=== PATIENT | female | born 1955 | race Caucasian/White ===

== ENCOUNTER 2017-03-14 13:39 | Observation (INO) | payer OTHER ==
[~2017-03-14 13:39] MED LIST: CALCTAB37 OR; FISH1000 PO; GABA300C3 PO; GLIM2TAB PO; GLUCTAB OR; LANTUSP SQ; MSIR15 OR; NOVORP2 SQ; RED600TA PO
[2017-03-14 13:42] VITALS: BP 156/77; PULSE 100; RESP 24; TEMP 97.4; O2SAT 96
--- NOTE | 2017-03-14 13:50 | PD ---
Physical Exam Date Seen by Provider: Mar 14, 2017 Time Seen by Provider: 13:49 Data Data Last Documented VS Vital Signs Date Time Temp Pulse Resp B/P Pulse Ox O2 Delivery O2 Flow Rate FiO2 03/14/17 13:42 97.4 100 24 156/77 96 Room Air [facility] Supervised Visit with DELL: No Narrative Course 61 YO F with complaint of dysuria x 1 week, high blood sugars today. Antibiotics last week for dental pain. Vitals reviewed. Awaiting bed placement. Elsa Alexandra Mar 14, 2017 13:50
[2017-03-14] MEDS ORDERED: SODIUM CHLOR 0.9% 1000 ML INJ 1,000 ML IV SCH (14:06)
[2017-03-14] MEDS ORDERED: SODIUM CHLOR 0.9% 1000 ML INJ 1,000 ML IV ONE ×2 (14:15→15:30)
[2017-03-14] MEDS ORDERED: SODIUM CHLORIDE 0.9% FLUSH 10 ML FLUSH IV FLUSH PRN ×2 (14:15→18:15)
[2017-03-14 14:36] LABS: AUTOMATED NEUTROPHIL # 8.9 TH/MM3 (1.8-7.7); BASOPHIL # 0.2 TH/MM3 (0-0.2); BASOPHIL % 1.3 % (0.0-2.0); EOSINOPHIL # 0.1 TH/MM3 (0-0.4); HEMATOCRIT 43.7 % (35.0-46.0); HEMO FLAGS DIFF FINAL; LYMPH % 19.8 % (9.0-44.0); LYMPHOCYTE # 2.4 TH/MM3 (1.0-4.8); MEAN CORPUSCULAR HEMOGLOBIN 31.9 PG (27.0-34.0); MEAN CORPUSCULAR HGB CONC 33.3 % (32.0-36.0); NEUT % 72.9 % (16.0-70.0); PLATELET COUNT 246 TH/MM3 (150-450); RED BLOOD COUNT 4.55 MIL/MM3 (4.00-5.30); RED CELL DISTRIBUTION WIDTH 13.2 % (11.6-17.2); WHITE BLOOD COUNT 12.2 TH/MM3 (4.0-11.0)
--- NOTE | 2017-03-14 14:36 | PD ---
HPI Chief Complaint: Complaint Time Seen by Provider: 14:06 Travel History International Travel<30 days: No Contact w/Intl Traveler<30days: No Traveled to known affect area: No History of Present Illness HPI Patient is a 61-year-old female who presents to emergency room with complaints of possible uti. Patient reports that for the past week, she has had increased urinary urgency, frequency and dysuria. Reports that she thinks that she has a urinary tract infection. She reports that on top of that, she is a type I diabetic, reports her blood sugars have been elevated, but sugar was 497 prior to breakfast this morning. Reports that she has also been dealing with tooth infection, reports that she went to a free dental clinic and was told that she had a dental infection and was started on penicillin. That she completed her full course of antibiotics and began to have pain again to her tooth. Reports that she returned to dental clinic was told that the infection was still there and that she would need to see in another dental specialist. Patient reports that she is currently looking for another dentist at this time. Patient with no fevers or chills at the time, no abdominal pain, no nausea or vomiting. PFSH Past Medical History Heart Rhythm Problems: No Cancer: Yes (SQUAMOUS CELL HAND) Cardiac Catheterization: No Cardiovascular Problems: Yes (OPEN HEART/NC) High Cholesterol: Yes Congestive Heart Failure: No Diabetes: Yes Diminished Hearing: No GERD: Yes Hepatitis: No Hiatal Hernia: No Hypertension: No Respiratory: Yes (COPD) Myocardial Infarction: No Thyroid Disease: No Tetanus Vaccination: Unknown Influenza Vaccination: No Menopausal: Yes Ovarian Cysts: No (OVARIAN SURG THOUGH) Past Surgical History Abdominal Surgery: No Cardiac Surgery: No Coronary Artery Bypass Graft: No Ear Surgery: No Endocrine Surgery: No Eye Surgery: No Genitourinary Surgery: Yes (BLADDER SUSPENSION) Gynecologic Surgery: Yes (VEE OVARIAN WEDGE CUT ; D&C (MULTIPLE) 3RD DEGREE TEAR FROM CHILDBIRTH) Hysterectomy: Yes Pacemaker: No Thoracic Surgery: No Social History Alcohol Use: No Tobacco Use: No Substance Use: No Allergies-Medications (Allergen,Severity, Reaction): Uncoded Allergies: ARTIFICIAL SWEETNERS (Allergy, Severe, 08/29/10) GENERALIZED HEAVINESS Reported Meds & Prescriptions Reported Meds & Active Scripts Active Reported Red Yeast Rice (Red Yeast Rice Extract) 600 Mg Tab 600 Mg PO DAILY Fish Oil 1,000 Mg Cap 1,000 Mg PO DAILY Morphine Sulfate IR 15 mg (Morphine Sulfate) 15 Mg Tab 15 Mg OR BIDPRN Glimepiride 2 Mg Tab 2 Mg PO DAILY Metformin Hcl (Metformin HCl) 500 Mg Tab 500 Mg OR BID Gabapentin 300 Mg Cap 300 Mg PO TID Calcium 600 High Potency (Calcium Carbonate) Tab 600 Mg OR BID Novolin R (Insulin Human Regular) 100 Units/Ml Inj 0 SQ DIRECTED Sliding Scale As Directed. Lantus (Insulin Glargine) 100 Units/Ml Inj 70 Units SQ HS Review of Systems General / Constitutional: No: Fever Eyes: No: Visual changes HENT: No: Headaches Cardiovascular: No: Chest Pain or Discomfort Respiratory: No: Shortness of Breath Gastrointestinal: No: Abdominal Pain Genitourinary: Positive: Urgency, Frequency, Dysuria Musculoskeletal: No: Pain Skin: No Rash Neurologic: No: Weakness Psychiatric: No: Depression Endocrine: No: Polydipsia Hematologic/Lymphatic: No: Easy Bruising Physical Exam Narrative GENERAL: No acute distress, nontoxic SKIN: Focused skin assessment warm/dry. HEAD: Atraumatic. Normocephalic. EYES: Pupils equal and round. No scleral icterus. No injection or drainage. ENT: No nasal bleeding or discharge. Mucous membranes pink and moist. NECK: Trachea midline. No JVD. CARDIOVASCULAR: Regular rate and rhythm. No murmur appreciated. RESPIRATORY: No accessory muscle use. Clear to auscultation. Breath sounds equal bilaterally. GASTROINTESTINAL: Abdomen soft, non-tender, nondistended. Hepatic and splenic margins not palpable. MUSCULOSKELETAL: No obvious deformities. No clubbing. No cyanosis. No edema. NEUROLOGICAL: Awake and alert. No obvious cranial nerve deficits. Motor grossly within normal limits. Normal speech. PSYCHIATRIC: Appropriate mood and affect; insight and judgment normal. Data Data Last Documented VS Vital Signs Date Time Temp Pulse Resp B/P Pulse Ox O2 Delivery O2 Flow Rate FiO2 03/14/17 14:29 18 03/14/17 13:42 97.4 100 156/77 96 Room Air Orders Complete Blood Count With Diff (03/14/17 14:06) Comprehensive Metabolic Panel (03/14/17 14:06) Prothrombin Time / Inr (Pt) (03/14/17 14:06) Act Partial Throm Time (Ptt) (03/14/17 14:06) Urinalysis - C+S If Indicated (03/14/17 14:06) Iv Access Insert/Monitor (03/14/17 14:06) Sodium Chlor 0.9% 1000 Ml Inj (Ns 1000 M (03/14/17 14:06) Sodium Chloride 0.9% Flush (Ns Flush) (03/14/17 14:15) Sodium Chlor 0.9% 1000 Ml Inj (Ns 1000 M (03/14/17 14:15) Urine Culture (03/14/17 14:25) Sodium Chlor 0.9% 1000 Ml Inj (Ns 1000 M (03/14/17 15:30) Insulin Human Regular Inj (Novolin R Inj (03/14/17 15:30) Ceftriaxone Inj (Rocephin Inj) (03/14/17 15:45) Insulin Human Regular Inj (Novolin R Inj (03/14/17 17:00) Fluconazole (Diflucan) (03/14/17 17:15) Labs Laboratory Tests Test 03/14/17 14:25 White Blood Count 12.2 TH/MM3 Red Blood Count 4.55 MIL/MM3 Hemoglobin 14.5 GM/DL Hematocrit 43.7 % Mean Corpuscular Volume 96.0 FL Mean Corpuscular Hemoglobin 31.9 PG Mean Corpuscular Hemoglobin 33.3 % Concent Red Cell Distribution Width 13.2 % Platelet Count 246 TH/MM3 Mean Platelet Volume 9.5 FL Neutrophils (%) (Auto) 72.9 % Lymphocytes (%) (Auto) 19.8 % Monocytes (%) (Auto) 5.0 % Eosinophils (%) (Auto) 1.0 % Basophils (%) (Auto) 1.3 % Neutrophils # (Auto) 8.9 TH/MM3 Lymphocytes # (Auto) 2.4 TH/MM3 Monocytes # (Auto) 0.6 TH/MM3 Eosinophils # (Auto) 0.1 TH/MM3 Basophils # (Auto) 0.2 TH/MM3 CBC Comment DIFF FINAL Differential Comment Prothrombin Time 10.0 SEC Prothromb Time International 0.9 RATIO Ratio Activated Partial 25.0 SEC Thromboplast Time Urine Color LIGHT-YELLOW Urine Turbidity HAZY Urine pH 5.0 Urine Specific [place] 1.024 Urine Protein NEG mg/dL Urine Glucose (UA) 1000 mg/dL Urine Ketones NEG mg/dL Urine Occult Blood NEG Urine Nitrite NEG Urine Bilirubin NEG Urine Urobilinogen LESS THAN 2.0 MG/DL Urine Leukocyte Esterase LARGE Urine RBC 5 /hpf Urine WBC 93 /hpf Urine WBC Clumps RARE Urine Squamous Epithelial <1 /hpf Cells Urine Bacteria RARE /hpf Urine Mucus FEW /lpf Microscopic Urinalysis Comment CULTURE INDICATED Sodium Level 129 MEQ/L Potassium Level 4.6 MEQ/L Chloride Level 95 MEQ/L Carbon Dioxide Level 23.7 MEQ/L Anion Gap 10 MEQ/L Blood Urea Nitrogen 9 MG/DL Creatinine 1.00 MG/DL Estimat Glomerular Filtration 56 ML/MIN Rate Random Glucose 678 MG/DL Calcium Level 8.9 MG/DL Total Bilirubin 0.3 MG/DL Aspartate Amino Transf 25 U/L (AST/SGOT) Alanine Aminotransferase 31 U/L (ALT/SGPT) Alkaline Phosphatase 171 U/L Total Protein 7.2 GM/DL Albumin 2.9 GM/DL [facility] Medical Decision Making Medical Screen Exam Complete: Yes Emergency Medical Condition: Yes Interpretation(s) Vital Signs Date Time Temp Pulse Resp B/P Pulse Ox O2 Delivery O2 Flow Rate FiO2 03/14/17 14:29 18 03/14/17 13:42 97.4 100 24 156/77 96 Room Air Differential Diagnosis Dental infection, hyperglycemia, cystitis, pyelonephritis Narrative Course 61-year-old female who presents to emergency room with complaints of dysuria, urinary urgency and frequency for the past week. UA ordered. Patient also with hyperglyecemia - bs too high to read. Will give IVF and check labs and administer insulin after labs result Vital Signs Date Time Temp Pulse Resp B/P Pulse Ox O2 Delivery O2 Flow Rate FiO2 03/14/17 14:29 18 03/14/17 13:42 97.4 100 24 156/77 96 Room Air Laboratory Tests Test 03/14/17 14:25 White Blood Count 12.2 TH/MM3 (4.0-11.0) Red Blood Count 4.55 MIL/MM3 (4.00-5.30) Hemoglobin 14.5 GM/DL (11.6-15.3) Hematocrit 43.7 % (35.0-46.0) Mean Corpuscular Volume 96.0 FL (80.0-100.0) Mean Corpuscular Hemoglobin 31.9 PG (27.0-34.0) Mean Corpuscular Hemoglobin 33.3 % Concent (32.0-36.0) Red Cell Distribution Width 13.2 % (11.6-17.2) Platelet Count 246 TH/MM3 (150-450) Mean Platelet Volume 9.5 FL (7.0-11.0) Neutrophils (%) (Auto) 72.9 % (16.0-70.0) Lymphocytes (%) (Auto) 19.8 % (9.0-44.0) Monocytes (%) (Auto) 5.0 % (0.0-8.0) Eosinophils (%) (Auto) 1.0 % (0.0-4.0) Basophils (%) (Auto) 1.3 % (0.0-2.0) Neutrophils # (Auto) 8.9 TH/MM3 (1.8-7.7) Lymphocytes # (Auto) 2.4 TH/MM3 (1.0-4.8) Monocytes # (Auto) 0.6 TH/MM3 (0-0.9) Eosinophils # (Auto) 0.1 TH/MM3 (0-0.4) Basophils # (Auto) 0.2 TH/MM3 (0-0.2) CBC Comment DIFF FINAL Differential Comment Prothrombin Time 10.0 SEC (9.8-11.6) Prothromb Time International 0.9 RATIO Ratio Activated Partial 25.0 SEC Thromboplast Time (24.3-30.1) Urine Color LIGHT-YELLOW (YELLW/STRAW) Urine Turbidity HAZY (CLEAR) Urine pH 5.0 (5.0-8.5) Urine Specific [place] 1.024 (1.002-1.035) Urine Protein NEG mg/dL (NEG-TRACE) Urine Glucose (UA) 1000 mg/dL (NEG) Urine Ketones NEG mg/dL (NEG) Urine Occult Blood NEG (NEG) Urine Nitrite NEG (NEG) Urine Bilirubin NEG (NEG) Urine Urobilinogen LESS THAN 2.0 MG/DL (LESS THAN 2.0) Urine Leukocyte Esterase LARGE (NEG) Urine RBC 5 /hpf (0-3) Urine WBC 93 /hpf (0-5) Urine WBC Clumps RARE (NONE) Urine Squamous Epithelial <1 /hpf (0-5) Cells Urine Bacteria RARE /hpf (NONE) Urine Mucus FEW /lpf (OCC) Microscopic Urinalysis Comment CULTURE INDICATED Sodium Level 129 MEQ/L (136-145) Potassium Level 4.6 MEQ/L (3.5-5.1) Chloride Level 95 MEQ/L (98-107) Carbon Dioxide Level 23.7 MEQ/L (21.0-32.0) Anion Gap 10 MEQ/L (5-15) Blood Urea Nitrogen 9 MG/DL (7-18) Creatinine 1.00 MG/DL (0.50-1.00) Estimat Glomerular Filtration 56 ML/MIN (>89) Rate Random Glucose 678 MG/DL (74-106) Calcium Level 8.9 MG/DL (8.5-10.1) Total Bilirubin 0.3 MG/DL (0.2-1.0) Aspartate Amino Transf 25 U/L (15-37) (AST/SGOT) Alanine Aminotransferase 31 U/L (10-53) (ALT/SGPT) Alkaline Phosphatase 171 U/L (45-117) Total Protein 7.2 GM/DL (6.4-8.2) Albumin 2.9 GM/DL (3.4-5.0) patients bs 678, after 3 liters of fluid and 10 units of insulin - patient's repeat bs 527 Patient reports that for the past 2 years, her blood sugars have been uncontrolled. Patient reports that her blood sugar ranges from the 400- 600s. Patient reports that she is a type II diabetic, reports that she cannot find a physician to take care of her bc she does not have any insurance. She has been buying insulin from the pharmacy and has been administrating this to herself for her blood sugar control and reports "i just can't get my bs down." She does have a urinary tract infection, a dose of rocephin was administered. sent Plan to admit for bs control case reviewed with dr. beverly who accepts pt to service on behalf of Dr. Gage Diagnosis Primary Impression: Hyperglycemia due to type 2 diabetes mellitus Qualified Code: E11.65 - Type 2 diabetes mellitus with hyperglycemia, with long-term current use of insulin Additional Impression: UTI (urinary tract infection) Qualified Code: N30.01 - Acute cystitis with hematuria Admitting Information Admitting Physician Requests: Lakia Raines DO Mar 14, 2017 14:36
[2017-03-14 14:46] LABS: BACTERIA, URINE RARE /hpf; BLOOD, URINE NEG (NEG); COMMENT (UR) CULTURE INDICATED; CULTURE IF INDICATED CULTURE INDICATED; GLUCOSE,URINE 1000 mg/dL (NEG); KETONE, URINE NEG (NEG); MUCUS URINE FEW /lpf (OCC); NITRITE,URINE NEG (NEG); SQUAMOUS EPITHELIAL CELL URINE <1 /hpf (0-5); URINE COLOR LIGHT-YELLOW (YELLW/STRAW)
[2017-03-14 14:50] LABS: INTERNATIONAL NORMALIZED RATIO 0.9 RATIO
[2017-03-14 14:53] LABS: ANION GAP 10 MEQ/L (5-15)
[2017-03-14 15:13] LABS: ALKALINE PHOSPHATASE 171 U/L (45-117); ALT (GPT) 31 U/L (10-53); AST (GOT) 25 U/L (15-37); BICARBONATE 23.7 MEQ/L (21.0-32.0); BLOOD UREA NITROGEN 9 MG/DL (7-18); CHLORIDE 95 MEQ/L (98-107); GLOMERULAR FILTRATION RATE 56 ML/MIN (>89); POTASSIUM 4.6 MEQ/L (3.5-5.1); SODIUM (NA) 129 MEQ/L (136-145); TOTAL BILIRUBIN ADULT 0.3 MG/DL (0.2-1.0)
[2017-03-14] MEDS ORDERED: INSULIN HUMAN REGULAR 1,000 UNITS/10 ML VIAL SQ ONE ×2 (15:30→17:00)
[2017-03-14] MEDS ORDERED: cefTRIAXone INJ 1,000 MG in SODIUM CHLORIDE 0.9% INJ 100 ML IV ONE (15:45)
[2017-03-14] MEDS ORDERED: FLUCONAZOLE 100 MG TAB PO ONE ×2 (17:15→18:15)
--- NOTE | 2017-03-14 17:54 | HHI.HP ---
HPI Service Family Medicine Primary Care Physician Non-Staff Admission Diagnosis Hyperglycemia, uti Diagnoses: International Travel<30 Days: No Contact w/Intl Traveler<30days: No Known Affected Area: No History of Present Illness Patient is presenting with multiple complaints and a difficult historian. 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 She is presenting with multiple complaints to the hospital today. Her main complaint is that she believes she's developed the bladder infection. She reports that for the last 5 days she's noticed some burning with urination, as well as a slight increase in urination. Prior to this she has had a yeast infection that she's been trying to treat [id number]. She denies any fevers but she has been feeling warm and clammy. She also have had worsening fatigue. The burning with urination became painful yesterday (03/13/17), and then today when she woke up to urinate became almost unbearable. She also noticed some mild pain in her back, this concerned her that the infection had reached her kidneys so she decided to come to the hospital. She missed to feeling slightly nauseated, but has not vomited. She also admits to some occasional diarrhea throughout this timeframe. Denies any abdominal pain, but says that her bladder feels slightly tender. Another complaint is a toothache. 3 weeks ago she started to have some pain in her left side molar. She had gotten a root canal done to that tooth several years ago, and only recently has started to hurt. 2 weeks ago she went to a free clinic and was started on penicillin which she completed as of Thursday (). Also as of yesterday she went and saw a dentist at another free clinic who took x-rays of her mouth and told her that the nerve of that tooth appeared to be infected. They informed her that they don't work on the molars and give her referral to a specialist even though she told him that she couldn't afford to go see a specialist. The tooth pain is still bothersome but not as painful as it was prior to the antibiotics. Her last and most important issue for this Hospital visit is her type 2 diabetes. She has been poorly controlled for quite some time. She has been without insurance and then having difficulty obtaining her insulin. Her blood sugars used to be in the 200s on average however of late they've been in the 400s, and in the ED she was found to have a blood sugar of 678. She uses Lantus and Novolin R for her insulin. She says that she's been using the same bottle of Lantus for the last 2 years and ran out of it night prior to last. She says she's noticed that she's had the drastically increase her Novolin R sliding scale over the last several months in order to bring her blood glucose down. She thinks that her poor glucose control is been because of the stress, infections, and inability get her medications. She says that the reason she's been having difficulty obtaining her medications is due to lack of insurance. Review of Systems Constitutional: COMPLAINS OF: Fatigue, Fever, DENIES: Weight gain, Weight loss , Chills, Dizziness Eyes: DENIES: Blurred vision, Double Vision Ears, nose, mouth, throat: DENIES: Throat pain, Hoarseness, Sinus Pain Respiratory: COMPLAINS OF: Cough, Shortness of breath, DENIES: Wheezing, Sputum production Cardiovascular: DENIES: Chest pain, Palpitations, Lower Extremity Edema, Orthopnea Gastrointestinal: COMPLAINS OF: Diarrhea, Nausea, DENIES: Abdominal pain, Vomiting Genitourinary: COMPLAINS OF: Dyspareunia, Urinary frequency, Urinary incontinence, Dysuria, DENIES: Hematuria, Nocturia Musculoskeletal: COMPLAINS OF: Joint pain, Back pain Integumentary: DENIES: Rash Immunologic/allergic: DENIES: Eczema Neurologic: COMPLAINS OF: Poor Balance, DENIES: Abnormal gait, Headache Psychiatric: COMPLAINS OF: Anxiety, DENIES: Confusion, Depression Past Family Social History Past Medical History Bladder Prolapse Type 2 diabetes Carpal tunnel ADD Fibromyalgia Arthritis neuropathy herniated disks Plantar fasciitis CVA in Left eye Heart murmur Bronchitis GERD COPD DE Past Surgical History Hysterectomy Open Heart Surgery bypass 1 Cervical spinal fusion Reported Medications She says she's been without all of her medications, and has only been getting the Lantus and Novolin R from [facility] when she can afford it Reported Meds & Active Scripts Active Reported Red Yeast Rice (Red Yeast Rice Extract) 600 Mg Tab 600 Mg PO DAILY Fish Oil 1,000 Mg Cap 1,000 Mg PO DAILY Morphine Sulfate IR 15 mg (Morphine Sulfate) 15 Mg Tab 15 Mg OR BIDPRN Glimepiride 2 Mg Tab 2 Mg PO DAILY Glucophage XR 24 HR (Metformin HCl) 500 Mg Tab 500 Mg OR BID Gabapentin 300 Mg Cap 300 Mg PO TID Calcium 600 High Potency (Calcium Carbonate) Tab 600 Mg OR BID Novolin R (Insulin Human Regular) 100 Units/Ml Inj 0 SQ DIRECTED Sliding Scale As Directed. 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 SKIN: No rashes, ecchymoses or lesions. Cool and dry. HEAD: Atraumatic. Normocephalic. No temporal or scalp tenderness. EYES: Pupils equal round and reactive. Extraocular motions intact. No scleral icterus. No injection or drainage. ENT: Nose without bleeding, purulent drainage or septal hematoma. Throat without erythema, tonsillar hypertrophy or exudate several dental cavities. No noticeable erythema or abscesses in the oral region. Tender to palpation of the molar. Uvula midline. Airway patent. NECK: Trachea midline. No JVD or lymphadenopathy. Supple, nontender, no meningeal signs. CARDIOVASCULAR: Regular rate and rhythm soft mitral murmur likely mitral regurg noted RESPIRATORY: Clear to auscultation. Breath sounds equal bilaterally. No wheezes , rales, or rhonchi. GASTROINTESTINAL: Abdomen soft, , nondistended. No hepato-splenomegaly, or palpable masses. No guarding. Tenderness to palpation at the bladder MUSCULOSKELETAL: Extremities without clubbing, cyanosis, or edema. No joint tenderness, effusion, or edema noted. No calf tenderness. Negative Homans sign bilaterally. Negative CVA tenderness NEUROLOGICAL: Awake and alert. Cranial nerves II through XII grossly intact. Motor and sensory grossly within normal limits. Normal speech. Laboratory Laboratory Tests Test 03/14/17 14:25 White Blood Count 12.2 Red Blood Count 4.55 Hemoglobin 14.5 Hematocrit 43.7 Mean Corpuscular Volume 96.0 Mean Corpuscular Hemoglobin 31.9 Mean Corpuscular Hemoglobin 33.3 Concent Red Cell Distribution Width 13.2 Platelet Count 246 Mean Platelet Volume 9.5 Neutrophils (%) (Auto) 72.9 Lymphocytes (%) (Auto) 19.8 Monocytes (%) (Auto) 5.0 Eosinophils (%) (Auto) 1.0 Basophils (%) (Auto) 1.3 Neutrophils # (Auto) 8.9 Lymphocytes # (Auto) 2.4 Monocytes # (Auto) 0.6 Eosinophils # (Auto) 0.1 Basophils # (Auto) 0.2 CBC Comment DIFF FINAL Differential Comment Prothrombin Time 10.0 Prothromb Time International 0.9 Ratio Activated Partial 25.0 Thromboplast Time Urine Color LIGHT-YELLOW Urine Turbidity HAZY Urine pH 5.0 Urine Specific [place] 1.024 Urine Protein NEG Urine Glucose (UA) 1000 Urine Ketones NEG Urine Occult Blood NEG Urine Nitrite NEG Urine Bilirubin NEG Urine Urobilinogen LESS THAN 2.0 Urine Leukocyte Esterase LARGE Urine RBC 5 Urine WBC 93 Urine WBC Clumps RARE Urine Squamous Epithelial <1 Cells Urine Bacteria RARE Urine Mucus FEW Microscopic Urinalysis Comment CULTURE INDICATED Sodium Level 129 Potassium Level 4.6 Chloride Level 95 Carbon Dioxide Level 23.7 Anion Gap 10 Blood Urea Nitrogen 9 Creatinine 1.00 Estimat Glomerular Filtration 56 Rate Random Glucose 678 Calcium Level 8.9 Total Bilirubin 0.3 Aspartate Amino Transf 25 (AST/SGOT) Alanine Aminotransferase 31 (ALT/SGPT) Alkaline Phosphatase 171 Total Protein 7.2 Albumin 2.9 Date/Time Procedure Status Source Growth 03/14/17 14:25 Urine Culture Received Urine Random Urine Pending Result Diagram: 03/14/17 1425 03/14/17 1425 Assessment and Plan Assessment and Plan This is a 61-year-old female with extensive past history significant for type 2 diabetes, DE, 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 Being admitted for urinary tract infection, and hyperglycemia. Code Status Full code Discussed Condition With Dr. Gage Problem List: (1) Hyperglycemia due to type 2 diabetes mellitus Status: Acute Plan: Upon arriving to the ED patient was found to have a blood glucose of 678. Status post 10 units followed by 6 units of Novolin R, and blood glucose was 493. Patient says she hasn't eaten since breakfast. Poorly managed diabetes and due to lack of obtaining her insulin. Anion gap is closed at 10, patient does not smell of ketones, she is awake alert and not appearing to be ill at this time. Currently do not feel patient is in DKA but are closely monitoring. * Admit to observation * Blood glucose per protocol * Levemir 10 units at bedtime * Novolin insulin sliding scale * IV fluids at NS 100 MLS per hour * Holding off on insulin drip, will monitor for DKA * Consulted case management to help with patient obtaining follow-up and medications * Consulted diabetic education * Repeat BMP for 2100 * CBC, BMP ordered for a.m. (2) UTI (urinary tract infection) Status: Acute Plan: Patient is having signs and symptoms of urinary tract infection. UA is negative for nitrites, positive white blood cell counts, positive for bacteria, positive for mucus, positive for large amounts of glucose, cultures are indicated. * Rocephin 1 g IV every 24 hours * Urine cultures pending * Blood cultures pending * IV fluids as above (3) Tooth pain Status: Acute Plan: Patient reported having a tooth infection treated with penicillin, and completed her antibiotic regimen. Currently no signs other than tenderness for infection at this time, i.e. no erythema or swelling of the tooth in question. * Antibiotics as above * Monitor at this time * Pain control with Tylenol and Motrin (4) Yeast infection Status: Acute Plan: Patient reports that she's had a yeast infection from last week to 2 weeks been trying to treat it with [id number] medications. * Fluconazole 150 mg once (5) Nutrition, metabolism, and development symptoms Status: Acute Plan: Diet: Diabetic diet Fluids: IV fluids NS at 100mls/hr Out of bed ad dominique. Vitals every 4 Monitor electrolytes replace accordingly DVT prophylaxis with heparin and SCDs CODE STATUS: Full code Of note patient is Yazidi and declines blood products Disposition: Pending hyperglycemia control Problem Qualifiers (1) Hyperglycemia due to type 2 diabetes mellitus: Qualified Code: E11.65 - Type 2 diabetes mellitus with hyperglycemia, with long -term current use of insulin (2) UTI (urinary tract infection): Qualified Code: N30.01 - Acute cystitis with hematuria Delvin Naik MD R2 Mar 14, 2017 17:54
[2017-03-14 18:00] VITALS: BP 141/75; PULSE 90; RESP 18; O2SAT 98
[2017-03-14] MEDS: HEPARIN SODIUM - SQ 10,000 UNITS/ML VIAL SQ SCH (18:00)
[2017-03-14] MEDS ORDERED: ONDANSETRON HCL 4 MG/2 ML VIAL IVP PRN (18:15)
[2017-03-14] MEDS ORDERED: MAGNESIUM HYDROXIDE SUSP 30 ML CUP PO PRN (18:15)
[2017-03-14] MEDS ORDERED: ACETAMINOPHEN 325 MG TAB PO PRN (18:15)
[2017-03-14] MEDS ORDERED: GLUCAGON 1 MG/ML VIAL OTHER PRN (18:15)
[2017-03-14] MEDS ORDERED: LACTULOSE SYRUP 20 GM/30 ML CUP PO PRN (18:15)
[2017-03-14] MEDS ORDERED: DEXTROSE 50% IN WATER 50 ML VIAL(D50) IV PRN (18:15)
[2017-03-14] MEDS ORDERED: BISACODYL 10 MG SUPP RECTAL PRN (18:15)
[2017-03-14] MEDS ORDERED: SENNOSIDES 8.6 MG TAB PO PRN (18:15)
[2017-03-14] MEDS ORDERED: NALOXONE HCL 0.4 MG/ML AMP IV PRN (18:15)
[2017-03-14 18:21] VITALS: O2SAT 93
[2017-03-14] MEDS ORDERED: PILL SPLITTER OTHER PRN (18:30)
[2017-03-14 19:16] VITALS: BP 135/65; PULSE 86; RESP 18; TEMP 98.1; O2SAT 98
[2017-03-14] MEDS: SODIUM CHLOR 0.9% 1000 ML INJ 1,000 ML IV SCH (19:17)
[2017-03-14] MEDS ORDERED: IBUPROFEN 600 MG TAB PO PRN (19:30)
[2017-03-14] MEDS: INSULIN DETEMIR 100 UNITS/ML VIAL SQ SCH (20:59)
[2017-03-14] MEDS: INSULIN NovoLIN REGULAR SUPPLEMENTAL SCALE SQ SCH (21:00)
[2017-03-14] MEDS: SODIUM CHLORIDE 0.9% FLUSH 10 ML FLUSH IV FLUSH SCH (21:00)
[2017-03-14] MEDS: DOCUSATE SODIUM 50 MG/SENNA 8.6 MG TAB PO SCH (21:00)
[2017-03-14] MEDS ORDERED: ASPI325T PO (21:49)
[2017-03-14] MEDS ORDERED: CYMB60CA PO (21:49)
[2017-03-14] MEDS ORDERED: NRDRIP SQ (21:49)
[2017-03-14] MEDS ORDERED: LANTUS2P SQ (21:49)
[2017-03-14] MEDS ORDERED: METO25TA3 PO (21:49)
[2017-03-14] MEDS ORDERED: OMEP40CA2 PO (21:49)
[2017-03-14] MEDS ORDERED: GABA300C5 PO (21:49)
[2017-03-14 21:59] LABS: BICARBONATE 27.7 MEQ/L (21.0-32.0)
[2017-03-14 22:17] VITALS: BP 172/79; RESP 16; TEMP 98.2; O2SAT 97
[2017-03-14] MEDS ORDERED: HYDR-3533 PO (22:43)
[2017-03-14 23:31] VITALS: BP 131/58; PULSE 79; RESP 19; TEMP 98.4; O2SAT 97
[2017-03-15] VITALS (7 sets, daily range): BP systolic 106–147; BP diastolic 55–68; PULSE 71–78; RESP 18–20; TEMP 97.8–98.7; O2SAT 93–96
[2017-03-15] MEDS: HEPARIN SODIUM - SQ 10,000 UNITS/ML VIAL SQ SCH ×3 (03:17→17:28)
[2017-03-15] MEDS: SODIUM CHLOR 0.9% 1000 ML INJ 1,000 ML IV SCH ×2 (03:22→13:39)
[2017-03-15 05:52] LABS: BICARBONATE 27.7 MEQ/L (21.0-32.0)
[2017-03-15 06:07] LABS: AUTOMATED NEUTROPHIL # 4.2 TH/MM3 (1.8-7.7); BASOPHIL # 0.1 TH/MM3 (0-0.2); BASOPHIL % 0.7 % (0.0-2.0); EOSINOPHIL # 0.2 TH/MM3 (0-0.4); EOSINOPHIL % 1.9 % (0.0-4.0); HEMO FLAGS DIFF FINAL; LYMPH % 42.2 % (9.0-44.0); LYMPHOCYTE # 3.6 TH/MM3 (1.0-4.8); MEAN CELL VOLUME 93.9 FL (80.0-100.0); MEAN CORPUSCULAR HEMOGLOBIN 31.8 PG (27.0-34.0); MEAN CORPUSCULAR HGB CONC 33.9 % (32.0-36.0); MONO % 6.2 % (0.0-8.0); PLATELET COUNT 193 TH/MM3 (150-450); RED BLOOD COUNT 4.05 MIL/MM3 (4.00-5.30); RED CELL DISTRIBUTION WIDTH 13.1 % (11.6-17.2); WHITE BLOOD COUNT 8.5 TH/MM3 (4.0-11.0)
[2017-03-15] MEDS: INSULIN NovoLIN REGULAR SUPPLEMENTAL SCALE SQ SCH ×4 (06:53→22:20)
[2017-03-15] MEDS: SODIUM CHLORIDE 0.9% FLUSH 10 ML FLUSH IV FLUSH SCH ×2 (08:38→21:00)
[2017-03-15] MEDS: GABAPENTIN 300 MG CAP PO SCH ×3 (08:38→17:28)
[2017-03-15] MEDS: DOCUSATE SODIUM 50 MG/SENNA 8.6 MG TAB PO SCH ×2 (08:39→21:00)
[2017-03-15] MEDS ORDERED: MISCELLANEOUS NURSING INFORMATION ONE (10:00)
[2017-03-15] MEDS ORDERED: PNEUMOCOCCAL POLYVALENT INJ 25 MCG/0.5 ML SYR IM ONE (10:00)
[2017-03-15 10:06] LABS: HEMOGLOBIN A1a 1.8 %; HEMOGLOBIN A1b 1.3 %; HEMOGLOBIN Ao 71.8 %; HEMOGLOBIN F 2.2 %; HEMOGLOBIN LA1C 3.5 %; HEMOGLOBIN P3 5.5 %
[2017-03-15] MEDS: metFORMIN HCL 500 MG TAB PO SCH (10:49)
[2017-03-15] MEDS: LISINOPRIL 5 MG TAB PO SCH (10:49)
--- NOTE | 2017-03-15 11:41 | HHI.FPPN ---
Subjective Remarks This is a 61-year-old female seen with the medicine team. This patient has known type 2 diabetes, history of TX, history of stroke, history of C-spine fusions, fibromyalgia. She has had CABG 1. She presents to the emergency department with urinary burning and frequency, associated with fatigue and back pain. She's had nausea but no vomiting and loose stools. Additional problem is a toothache on penicillin. She did see a dentist this past week and was given a referral for specialty work on her molar. Third problem is her diabetes for which she has been on Lantus (this bottle is 2 years old) and Novolin R sliding scale. Her sugars at home have gone from 200 400 and when she presented to the emergency department her glucoses were 678. She attributes her poor glucose control to stress, infection and her medications. Please see history and physical examination for this admission for additional past, family, social history and review of systems. This morning, she says her suprapubic pain is much improved, she has just a mild amount of burning with urination. She's been up to the bathroom several times. Overall she feels she is improved. Objective Vitals Vital Signs Date Time Temp Pulse Resp B/P Pulse Ox O2 Delivery O2 Flow Rate FiO2 03/15/17 08:33 97.8 74 18 147/68 93 03/15/17 07:56 96 21 03/15/17 03:13 98.0 71 18 106/55 95 03/15/17 00:04 93 21 03/14/17 23:31 98.4 79 19 131/58 97 03/14/17 22:17 98.2 16 172/79 97 03/14/17 19:16 98.1 86 18 135/65 98 Room Air 03/14/17 18:21 93 21 03/14/17 18:00 90 18 141/75 98 Room Air 03/14/17 14:29 18 03/14/17 13:42 97.4 100 24 156/77 96 Room Air Result Diagram: 03/15/17 0455 03/15/17 0455 Other Results Laboratory Tests Test 03/14/17 03/14/17 03/15/17 14:25 21:08 04:55 Prothrombin Time 10.0 SEC Prothromb Time International 0.9 RATIO Ratio Activated Partial 25.0 SEC Thromboplast Time Sodium Level 129 MEQ/L 137 MEQ/L 138 MEQ/L Potassium Level 4.6 MEQ/L 4.0 MEQ/L 4.0 MEQ/L Chloride Level 95 MEQ/L 101 MEQ/L 105 MEQ/L Carbon Dioxide Level 23.7 MEQ/L 27.7 MEQ/L 27.7 MEQ/L Anion Gap 10 MEQ/L 8 MEQ/L 5 MEQ/L Blood Urea Nitrogen 9 MG/DL 6 MG/DL 9 MG/DL Creatinine 1.00 MG/DL 0.66 MG/DL 0.53 MG/DL Estimat Glomerular Filtration 56 ML/MIN 91 ML/MIN 117 ML/MIN Rate Random Glucose 678 MG/DL 364 MG/DL 314 MG/DL Calcium Level 8.9 MG/DL 8.1 MG/DL 8.2 MG/DL Total Bilirubin 0.3 MG/DL Aspartate Amino Transf 25 U/L (AST/SGOT) Alanine Aminotransferase 31 U/L (ALT/SGPT) Alkaline Phosphatase 171 U/L Total Protein 7.2 GM/DL Albumin 2.9 GM/DL White Blood Count 12.2 TH/MM3 8.5 TH/MM3 Red Blood Count 4.55 MIL/MM3 4.05 MIL/MM3 Hemoglobin 14.5 GM/DL 12.9 GM/DL Hematocrit 43.7 % 38.0 % Mean Corpuscular Volume 96.0 FL 93.9 FL Mean Corpuscular Hemoglobin 31.9 PG 31.8 PG Mean Corpuscular Hemoglobin 33.3 % 33.9 % Concent Red Cell Distribution Width 13.2 % 13.1 % Platelet Count 246 TH/MM3 193 TH/MM3 Mean Platelet Volume 9.5 FL 9.3 FL Neutrophils (%) (Auto) 72.9 % 49.0 % Lymphocytes (%) (Auto) 19.8 % 42.2 % Monocytes (%) (Auto) 5.0 % 6.2 % Eosinophils (%) (Auto) 1.0 % 1.9 % Basophils (%) (Auto) 1.3 % 0.7 % Neutrophils # (Auto) 8.9 TH/MM3 4.2 TH/MM3 Lymphocytes # (Auto) 2.4 TH/MM3 3.6 TH/MM3 Monocytes # (Auto) 0.6 TH/MM3 0.5 TH/MM3 Eosinophils # (Auto) 0.1 TH/MM3 0.2 TH/MM3 Basophils # (Auto) 0.2 TH/MM3 0.1 TH/MM3 CBC Comment DIFF FINAL DIFF FINAL Differential Comment Urine Color LIGHT-YELLOW Urine Turbidity HAZY Urine pH 5.0 Urine Specific [place] 1.024 Urine Protein NEG mg/dL Urine Glucose (UA) 1000 mg/dL Urine Ketones NEG mg/dL Urine Occult Blood NEG Urine Nitrite NEG Urine Bilirubin NEG Urine Urobilinogen LESS THAN 2.0 MG/DL Urine Leukocyte Esterase LARGE Urine RBC 5 /hpf Urine WBC 93 /hpf Urine WBC Clumps RARE Urine Squamous Epithelial <1 /hpf Cells Urine Bacteria RARE /hpf Urine Mucus FEW /lpf Microscopic Urinalysis Comment CULTURE INDICATED Hemoglobin A1c 13.9 % Microbiology Date/Time Procedure Status Source Growth 03/14/17 19:55 Aerobic Blood Culture - Preliminary Resulted Blood Peripheral NO GROWTH IN 1 DAY 03/14/17 19:55 Anaerobic Blood Culture - Preliminary Resulted Blood Peripheral NO GROWTH IN 1 DAY 03/14/17 14:25 Urine Culture - Preliminary Resulted Urine Random Urine Gram Negative [place] Objective Remarks O. CONSTITUTIONAL/GEN: normally nourished, in NAD. Obese EYES: conjunctiva normal, PERRLA, EOMI. ENT: Mouth and pharynx normal. NECK: thyroid midline. LUNGS: clear A-P, respiratory effort is normal. CARDIOVASCULAR: RR without murmur or gallop. No significant edema. SCDs in place GI/ABD: soft without masses, without organomegaly. Active bowel sounds, no suprapubic tenderness : no CVA tenderness NEURO: No focal deficits. SKIN: color normal, no rashes noted. HEME/LYMPH: no bruising, petechia or significant adenopathy MUSC: back is normal in appearance. Extremities are normal in appearance. PSYCH/MENTAL STATUS: Alert and oriented x 3. 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 Being admitted for urinary tract infection, and hyperglycemia. Problem List: (1) Hyperglycemia due to type 2 diabetes mellitus Status: Chronic Plan: Upon arriving to the ED patient was found to have a blood glucose of 678. Status post 10 units followed by 6 units of Novolin R, and blood glucose was 493. Patient says she hasn't eaten since breakfast. Poorly managed diabetes and due to lack of obtaining her insulin. Anion gap is closed at 10, patient does not smell of ketones, she is awake alert and not appearing to be ill at this time. Currently do not feel patient is in DKA but are closely monitoring. * Admit to observation * Blood glucose per protocol * Levemir 10 units at bedtime * Novolin insulin sliding scale * IV fluids at NS 100 MLS per hour * Holding off on insulin drip, will monitor for DKA * Consulted case management to help with patient obtaining follow-up and medications * Consulted diabetic education * CBC, BMP ordered for a.m. * Will start metformin 500 mg today in the middle of her meal * Start lisinopril today. (2) UTI (urinary tract infection) Status: Acute Plan: Patient is having signs and symptoms of urinary tract infection. UA is negative for nitrites, positive white blood cell counts, positive for bacteria, positive for mucus, positive for large amounts of glucose, cultures are indicated. * Rocephin 1 g IV every 24 hours * Urine cultures pending * Blood cultures pending * IV fluids as above (3) Tooth pain Status: Acute Plan: Patient reported having a tooth infection treated with penicillin, and completed her antibiotic regimen. Currently no signs other than tenderness for infection at this time, i.e. no erythema or swelling of the tooth in question. * Antibiotics as above * Monitor at this time * Pain control with Tylenol and Motrin (4) Yeast infection Status: Acute Plan: Patient reports that she's had a yeast infection from last week to 2 weeks been trying to treat it with [id number] medications. * Fluconazole 150 mg once (5) Nutrition, metabolism, and development symptoms Status: Acute Plan: Diet: Diabetic diet Fluids: IV fluids NS at 100mls/hr Out of bed ad dominique. Vitals every 4 Monitor electrolytes replace accordingly DVT prophylaxis with heparin and SCDs CODE STATUS: Full code Of note patient is Yarsani and declines blood products Disposition: Pending hyperglycemia control Problem Qualifiers (1) Hyperglycemia due to type 2 diabetes mellitus: Qualified Code: E11.65 - Type 2 diabetes mellitus with hyperglycemia, with long -term current use of insulin (2) UTI (urinary tract infection): Qualified Code: N30.01 - Acute cystitis with hematuria Nai Gage MD Mar 15, 2017 11:41
[2017-03-15] MEDS ORDERED: CYCL1TAB29 PO (13:54)
[2017-03-15] MEDS ORDERED: cefTRIAXone INJ 1,000 MG in SODIUM CHLORIDE 0.9% INJ 100 ML IV SCH (16:00)
[2017-03-15] MEDS ORDERED: CYCLOBENZAPRINE HCL 10 MG TAB PO PRN (16:45)
[2017-03-15] MEDS: INSULIN DETEMIR 100 UNITS/ML VIAL SQ SCH (22:26)
[2017-03-16 00:23] VITALS: BP 135/63; PULSE 74; RESP 18; TEMP 97.9; O2SAT 97
[2017-03-16] MEDS: DULoxetine HCl DR 60 MG CAP PO SCH ×2 (00:32→21:08)
[2017-03-16] MEDS: SODIUM CHLOR 0.9% 1000 ML INJ 1,000 ML IV SCH ×2 (00:32→09:06)
[2017-03-16] MEDS: PANTOPRAZOLE SOD 40 MG DELAYED RELEASE TAB PO SCH ×2 (00:32→21:08)
[2017-03-16] MEDS: HEPARIN SODIUM - SQ 10,000 UNITS/ML VIAL SQ SCH ×3 (01:35→18:14)
[2017-03-16 03:19] VITALS: BP 126/60; PULSE 73; RESP 18; O2SAT 95
[2017-03-16 05:56] LABS: HEMATOCRIT 38.1 % (35.0-46.0); MEAN CELL VOLUME 93.1 FL (80.0-100.0); MEAN CORPUSCULAR HEMOGLOBIN 32.4 PG (27.0-34.0); MEAN CORPUSCULAR HGB CONC 34.8 % (32.0-36.0); PLATELET COUNT 219 TH/MM3 (150-450); RED CELL DISTRIBUTION WIDTH 13.4 % (11.6-17.2); REVIEW FLAG FINAL
[2017-03-16] MEDS: INSULIN NovoLIN REGULAR SUPPLEMENTAL SCALE SQ SCH ×4 (06:17→21:18)
[2017-03-16 06:24] LABS: BICARBONATE 26.3 MEQ/L (21.0-32.0); POTASSIUM 4.1 MEQ/L (3.5-5.1)
[2017-03-16 08:31] VITALS: BP 161/68; PULSE 80; RESP 18; TEMP 98.8; O2SAT 95
[2017-03-16] MEDS: SODIUM CHLORIDE 0.9% FLUSH 10 ML FLUSH IV FLUSH SCH ×2 (09:00→21:09)
[2017-03-16] MEDS ORDERED: DULoxetine HCl DR 60 MG CAP PO SCH (09:00)
[2017-03-16] MEDS: GABAPENTIN 300 MG CAP PO SCH ×3 (09:04→17:56)
[2017-03-16] MEDS: metFORMIN HCL 500 MG TAB PO SCH ×2 (09:04→17:56)
[2017-03-16] MEDS: LISINOPRIL 5 MG TAB PO SCH (09:05)
[2017-03-16] MEDS: DOCUSATE SODIUM 50 MG/SENNA 8.6 MG TAB PO SCH ×2 (09:05→21:00)
[2017-03-16] MEDS: INSULIN DETEMIR 100 UNITS/ML VIAL SQ SCH ×2 (13:09→21:11)
[2017-03-16 14:22] VITALS: BP 128/58; PULSE 85; RESP 18; TEMP 98; O2SAT 98
--- NOTE | 2017-03-16 14:22 | HHI.FPPN ---
Subjective Remarks No acute events. Continues to have some dysuria this morning. Blood glucose still uncontrolled, titrating up insulin today. No nausea or vomiting. No diarrhea. No fevers or chills. (Soto Israel MD R2) Objective Vitals Vital Signs Date Time Temp Pulse Resp B/P Pulse Ox O2 Delivery O2 Flow Rate FiO2 03/16/17 08:31 98.8 80 18 161/68 95 03/16/17 03:19 73 18 126/60 95 03/16/17 00:23 97.9 74 18 135/63 97 03/15/17 19:19 98.7 78 18 116/57 95 03/15/17 15:38 98.2 75 20 141/64 96 I/O 03/15/17 03/15/17 03/15/17 03/16/17 03/16/17 03/16/17 07:00 15:00 23:00 07:00 15:00 23:00 Intake Total 1078 ml Balance 1078 ml Intake Oral 360 ml IV Total 718 ml # Voids 1 1 1 (Soto Israel MD R2) Result Diagram: 03/16/17 0508 03/16/17 0508 Objective Remarks O. CONSTITUTIONAL/GEN: No distress, sitting up in bed EYES: conjunctiva normal, PERRLA, EOMI. ENT: Mouth and pharynx normal. NECK: thyroid midline. LUNGS: CTAB CARDIOVASCULAR: RR without murmur or gallop. No significant edema. SCDs in place GI/ABD: soft without masses, without organomegaly. Active bowel sounds, no suprapubic tenderness : no CVA tenderness NEURO: No focal deficits. SKIN: color normal, no rashes noted. HEME/LYMPH: no bruising, petechiae or significant adenopathy MUSC: Extremities are normal in appearance. PSYCH/MENTAL STATUS: Alert and oriented x 3. 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 Being admitted for urinary tract infection, and hyperglycemia. Discharge Planning Pending better control of blood glucoses and diabetic education. (Soto Israel MD R2) Attending Attestation Patient seen and examined. Case reviewed and discussed with the resident team. Agree with plan of care as discussed with me and documented in the resident note. (Nai Gage MD) Problem List: (1) Hyperglycemia due to type 2 diabetes mellitus Status: Chronic Plan: Significant hyperglycemia despite 10 units Levemir at night and low dose sliding scale insulin. A1C extremely elevated. Also with UTI. * Blood glucose checks per protocol * Increase Levemir to 10 units BID * Increase metformin to 500 mg bid * Novolin insulin sliding scale * Consulted case management to help with patient obtaining follow-up and medications * Will need to follow up at free clinic if she qualifies * Consulted diabetic education * Lisinopril for renal protection (2) UTI (urinary tract infection) Status: Acute Plan: UA is negative for nitrites, positive white blood cell counts, positive for bacteria, positive for mucus, positive for large amounts of glucose, cultures are indicated. Urine culture with pseudomonas, trinh-sensitive. Blood cultures negative. * Rocephin 1 g IV every 24 hours x1 * Switched to Ciprofloxacin, 03/16/17 (3) Nutrition, metabolism, and development symptoms Status: Acute Plan: Diet: Diabetic diet Fluids: PO DVT prophylaxis with heparin and SCDs CODE STATUS: Full code Of note patient is Baptism and declines blood products Discussed with Dr. Gage, Dr. Munson (Soto Israel MD R2) Problem Qualifiers (1) Hyperglycemia due to type 2 diabetes mellitus: Qualified Code: E11.65 - Type 2 diabetes mellitus with hyperglycemia, with long -term current use of insulin (2) UTI (urinary tract infection): Qualified Code: N30.01 - Acute cystitis with hematuria Soto Israel MD R2 Mar 16, 2017 14:22 Nai Gage MD Mar 16, 2017 14:35
[2017-03-16 15:43] VITALS: BP 115/76; PULSE 85; RESP 18; TEMP 98.5; O2SAT 98
[2017-03-16 20:00] VITALS: BP 116/55; PULSE 81; RESP 18; TEMP 97.7; O2SAT 95
[2017-03-16] MEDS: CIPROFLOXACIN 500 MG TAB PO SCH (21:09)
[2017-03-17 00:12] VITALS: BP 127/60; PULSE 76; RESP 21; TEMP 98.3; O2SAT 94
[2017-03-17] MEDS: HEPARIN SODIUM - SQ 10,000 UNITS/ML VIAL SQ SCH ×2 (02:33→09:33)
[2017-03-17 04:32] VITALS: BP 105/55; PULSE 71; RESP 18; TEMP 96; O2SAT 97
[2017-03-17] MEDS: INSULIN NovoLIN REGULAR SUPPLEMENTAL SCALE SQ SCH ×2 (06:04→13:12)
[2017-03-17 07:30] VITALS: BP 139/63; PULSE 80; RESP 18; TEMP 98; O2SAT 96
[2017-03-17] MEDS: DOCUSATE SODIUM 50 MG/SENNA 8.6 MG TAB PO SCH ×2 (09:00→09:33)
[2017-03-17 09:05] LABS: HEMATOCRIT 40.8 % (35.0-46.0); MEAN CELL VOLUME 92.5 FL (80.0-100.0); MEAN CORPUSCULAR HEMOGLOBIN 32.3 PG (27.0-34.0); PLATELET COUNT 229 TH/MM3 (150-450); RED BLOOD COUNT 4.41 MIL/MM3 (4.00-5.30); RED CELL DISTRIBUTION WIDTH 13.3 % (11.6-17.2); REVIEW FLAG FINAL; WHITE BLOOD COUNT 7.7 TH/MM3 (4.0-11.0)
[2017-03-17] MEDS: INSULIN DETEMIR 100 UNITS/ML VIAL SQ SCH (09:32)
[2017-03-17] MEDS: metFORMIN HCL 500 MG TAB PO SCH (09:33)
[2017-03-17] MEDS: LISINOPRIL 5 MG TAB PO SCH (09:33)
[2017-03-17] MEDS: SODIUM CHLORIDE 0.9% FLUSH 10 ML FLUSH IV FLUSH SCH (09:33)
[2017-03-17] MEDS: CIPROFLOXACIN 500 MG TAB PO SCH (09:33)
[2017-03-17] MEDS: GABAPENTIN 300 MG CAP PO SCH ×2 (09:33→13:09)
--- NOTE | 2017-03-17 09:57 | HHI.DCPOC ---
Discharge Care Plan Diagnosis: (1) UTI (urinary tract infection) (2) Hyperglycemia due to type 2 diabetes mellitus Goals to Promote Your Health * To prevent worsening of your condition and complications * To maintain your health at the optimal level Directions to Meet Your Goals Take your medications as prescribed Follow your dietary instruction Follow activity as directed Keep your appointments as scheduled Take your immunizations and boosters as scheduled If your symptoms worsen call your PCP, if no PCP go to Urgent Care Center or Emergency Room Smoking is Dangerous to Your Health. Avoid second hand smoke Call the 24-hour hour crisis hotline for domestic abuse at Kulwinder Munson MD R1 Mar 17, 2017 09:57
[2017-03-17] MEDS ORDERED: EASY1MIS7 (10:22)
[2017-03-17] MEDS ORDERED: BLOOD GLUCOSE M1 KIT (10:22)
[2017-03-17] MEDS ORDERED: LEVEMIR SQ (10:22)
[2017-03-17] MEDS ORDERED: CIPR-9 PO (10:22)
[2017-03-17] MEDS ORDERED: METF500 PO (10:22)
--- NOTE | 2017-03-17 10:39 | HHI.FPPN ---
Subjective Remarks Patient seen and evaluated this morning. No acute events overnight with VSS. She states the she feels much better overall this morning and is ready to be discharged. Her dysuria resolved, but she does endorse a feeling of "bladder irritability." When asked to describe this feeling she is unable to and states that she is not in pain, but is more like being sore. Otherwise her only complaint is her chronic back pain from lying in her bed. She denied any fevers , chills, SOB, chest pain, NVD, or calf tenderness. (Kulwinder Munson MD R1) Objective Vitals Vital Signs Date Time Temp Pulse Resp B/P Pulse Ox O2 Delivery O2 Flow Rate FiO2 03/17/17 07:30 98.0 80 18 139/63 96 03/17/17 04:32 96.0 71 18 105/55 97 03/17/17 00:12 98.3 76 21 127/60 94 03/16/17 20:00 97.7 81 18 116/55 95 03/16/17 15:43 98.5 85 18 115/76 98 03/16/17 14:22 98.0 85 18 128/58 98 I/O 03/16/17 03/16/17 03/16/17 03/17/17 03/17/17 03/17/17 07:00 15:00 23:00 07:00 15:00 23:00 Intake Total 1078 ml 480 ml Balance 1078 ml 480 ml Intake Oral 360 ml 480 ml IV Total 718 ml # Voids 1 2 # Bowel Movements 1 (Kulwinder Munson MD R1) Result Diagram: 03/17/17 0810 03/16/17 0508 Objective Remarks CONSTITUTIONAL/GEN: No distress, sitting up in bed HEENT: AT, NC with EOMI. MMM. No JVD or LAD appreciated. LUNGS: CTAB with no CRW. CARDIOVASCULAR: RRR without murmur or gallop. GI/ABD: Soft, nontender with +BS. No masses appreciated. : No CVA tenderness. Mild suprapubic tenderness unchanged from earlier exams. NEURO: No focal deficits. SKIN: Warm and dry. No rash. MUSC: Extremities are normal in appearance. PSYCH/MENTAL STATUS: Alert and oriented x 3. 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 She is admitted for urinary tract infection, and hyperglycemia. Discharge Planning Patient to be discharged home today pending meeting with Case Management for assistance. (Kulwinder Munsno MD R1) Attending Attestation Patient seen and examined. Case reviewed and discussed with the resident team. Agree with plan of care as discussed with me and documented in the resident note. (Nai Gage MD) Problem List: (1) Hyperglycemia due to type 2 diabetes mellitus Status: Chronic Plan: Significant hyperglycemia despite 10 units Levemir at night and low dose sliding scale insulin. A1C extremely elevated. Also with UTI. * Blood glucose checks per protocol, home monitor ordered upon discharge * Increase Levemir to 15 units BID at discharge * Increase metformin to 1000 mg bid at discharge * Novolin insulin sliding scale discontinued on discahrge * Consulted case management to help with patient obtaining follow-up and medications * Will need to follow up at [facility] clinic per Case Management * Consulted diabetic education * Lisinopril for renal protection (2) UTI (urinary tract infection) Status: Acute Plan: UA is negative for nitrites, positive white blood cell counts, positive for bacteria, positive for mucus, positive for large amounts of glucose, cultures are indicated. Urine culture with pseudomonas, trinh-sensitive. Blood cultures negative. * Rocephin 1 g IV every 24 hours x1 * Switched to Ciprofloxacin, 03/16/17. Continue Ciprofloxacin at discharge for 4 more days (8 tablets) for a total of 7 days of ABX therapy. (3) Nutrition, metabolism, and development symptoms Status: Acute Plan: Diet: Diabetic diet Fluids: PO DVT prophylaxis with heparin and SCDs - discontinued on discharge CODE STATUS: Full code Of note patient is Anglican and declines blood products Discussed with Dr. Jhonatan Hernandez (Kulwinder Munson MD R1) Problem Qualifiers (1) Hyperglycemia due to type 2 diabetes mellitus: Qualified Code: E11.65 - Type 2 diabetes mellitus with hyperglycemia, with long -term current use of insulin (2) UTI (urinary tract infection): Qualified Code: N30.01 - Acute cystitis with hematuria Kulwinder Munson MD R1 Mar 17, 2017 10:39 Nai Gage MD Mar 17, 2017 15:51
[2017-03-17 11:28] VITALS: BP 124/63; PULSE 85; RESP 19; TEMP 98.1; O2SAT 95
[2017-03-17] MEDS ORDERED: DULOXETINE PO (13:55)
--- NOTE | 2017-03-23 16:10 | HHI.DS ---
Discharge Summary Admission Date Mar 14, 2017 at 17:30 Discharge Date: Mar 17, 2017 Admitting Diagnosis Hyperglycemia, uti (1) Hyperglycemia due to type 2 diabetes mellitus Diagnosis: Principal Plan: Significant hyperglycemia despite 10 units Levemir at night and low dose sliding scale insulin. A1C extremely elevated. Also with UTI. * Blood glucose checks per protocol, home monitor ordered upon discharge * Increase Levemir to 15 units BID at discharge * Increase metformin to 1000 mg bid at discharge * Novolin insulin sliding scale discontinued on discahrge * Consulted case management to help with patient obtaining follow-up and medications * Will need to follow up at [facility] clinic per Case Management * Consulted diabetic education * Lisinopril for renal protection (2) UTI (urinary tract infection) Diagnosis: Principal Plan: UA is negative for nitrites, positive white blood cell counts, positive for bacteria, positive for mucus, positive for large amounts of glucose, cultures are indicated. Urine culture with pseudomonas, trinh-sensitive. Blood cultures negative. * Rocephin 1 g IV every 24 hours x1 * Switched to Ciprofloxacin, 03/16/17. Continue Ciprofloxacin at discharge for 4 more days (8 tablets) for a total of 7 days of ABX therapy. (3) Nutrition, metabolism, and development symptoms Diagnosis: Principal Plan: Diet: Diabetic diet Fluids: PO DVT prophylaxis with heparin and SCDs - discontinued on discharge CODE STATUS: Full code Of note patient is [place] and declines blood products Discussed with Dr. Gage, Dr. Israel Brief History Patient is presenting with multiple complaints and a difficult historian. 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 She is presenting with multiple complaints to the hospital today. Her main complaint is that she believes she's developed the bladder infection. She reports that for the last 5 days she's noticed some burning with urination, as well as a slight increase in urination. Prior to this she has had a yeast infection that she's been trying to treat [id number]. She denies any fevers but she has been feeling warm and clammy. She also have had worsening fatigue. The burning with urination became painful yesterday (03/13/17), and then today when she woke up to urinate became almost unbearable. She also noticed some mild pain in her back, this concerned her that the infection had reached her kidneys so she decided to come to the hospital. She missed to feeling slightly nauseated, but has not vomited. She also admits to some occasional diarrhea throughout this timeframe. Denies any abdominal pain, but says that her bladder feels slightly tender. Another complaint is a toothache. 3 weeks ago she started to have some pain in her left side molar. She had gotten a root canal done to that tooth several years ago, and only recently has started to hurt. 2 weeks ago she went to a free clinic and was started on penicillin which she completed as of Thursday (). Also as of yesterday she went and saw a dentist at another free clinic who took x-rays of her mouth and told her that the nerve of that tooth appeared to be infected. They informed her that they don't work on the molars and give her referral to a specialist even though she told him that she couldn't afford to go see a specialist. The tooth pain is still bothersome but not as painful as it was prior to the antibiotics. Her last and most important issue for this Hospital visit is her type 2 diabetes. She has been poorly controlled for quite some time. She has been without insurance and then having difficulty obtaining her insulin. Her blood sugars used to be in the 200s on average however of late they've been in the 400s, and in the ED she was found to have a blood sugar of 678. She uses Lantus and Novolin R for her insulin. She says that she's been using the same bottle of Lantus for the last 2 years and ran out of it night prior to last. She says she's noticed that she's had the drastically increase her Novolin R sliding scale over the last several months in order to bring her blood glucose down. She thinks that her poor glucose control is been because of the stress, infections, and inability get her medications. She says that the reason she's been having difficulty obtaining her medications is due to lack of insurance. PE at Discharge CONSTITUTIONAL/GEN: No distress, sitting up in bed HEENT: AT, NC with EOMI. MMM. No JVD or LAD appreciated. LUNGS: CTAB with no CRW. CARDIOVASCULAR: RRR without murmur or gallop. GI/ABD: Soft, nontender with +BS. No masses appreciated. : No CVA tenderness. Mild suprapubic tenderness unchanged from earlier exams. NEURO: No focal deficits. SKIN: Warm and dry. No rash. MUSC: Extremities are normal in appearance. PSYCH/MENTAL STATUS: Alert and oriented x 3. Hospital Course Patient was admitted for hypoglycemia with urinary tract infection. Patient was placed on sliding scale insulin for diabetic control as well as Levemir long- acting insulin. Urine culture was positive for pansensitive pseudomonas. Patient was initially started on Rocephin IV and was transitioned to ciprofloxacin discharge for total of 4 more days resulting in a total of 7 days of antibiotic therapy as her UTI was complicated by her diabetes mellitus. At the time of discharge, she was discharged home on 15 units of Levemir twice a day and metformin 1000 mg twice a day. She was also prescribed home glucose monitoring kit and given instructions on monitoring by diabetic education. Patient was instructed to discontinue using her Novolin R and glargine insulin at this time. She was also given a refill prescription for duloxetine medication. Case management was consulted for assistance with follow-up appointments. Patient was instructed to follow-up at the free clinic within 1 week. Pt Condition on Discharge: Stable Discharge Disposition: Discharge Home Discharge Instructions DIET: Follow Instructions for: Diabetic Diet Activities you can perform: Regular-No Restrictions Follow up Referrals: PCP Follow-up - 1 Week New Medications: Blood Glucose Monitoring W/Device (Blood Glucose Monitoring W/Device) 1 Kit Kit 1 KIT .ROUTE DIRECTED Blood Sugar Management #1 Ref 0 KIT Syringe and Needle,Insulin,1Ml (Easy Touch Insulin Syringe) 1 Each Disp.syrin UNIT #60 Ciprofloxacin (Cipro) 500 Mg Tab 500 MG PO Q12HR #8 TAB Insulin Detemir Inj (Levemir Inj) 1,000 unit/ 10 ML Vial 15 UNITS SQ Q12HR #1 VIAL Metformin (Glucophage) 500 Mg Tab 1000 MG PO BIDPC #60 Ref 1 TAB ([DULoxetine DR]) 60 MG CAP 60 MG PO HS CAP Continued Medications: Aspirin (Aspirin) 325 Mg Tab 325 MG PO DAILY #30 Ref 0 TAB Cyclobenzaprine (Flexeril) 10 Mg Tab 10 MG PO TID Muscle Spasm #90 Ref 0 TAB Gabapentin (Gabapentin) 300 Mg Cap 300 MG PO TID #90 Ref 0 CAP Hydrocodone-Acetaminophen (Lortab) 5-325 Mg Tab 1 TAB PO Q6H PRN PAIN Ref 0 TAB Metoprolol Tartrate (Metoprolol Tartrate) 25 Mg Tab 12.5 MG PO BID #60 Ref 0 TAB Omeprazole (Omeprazole) 40 Mg Cap 40 MG PO HS #30 Ref 0 CAP Discontinued Medications: Duloxetine DR (Cymbalta DR) 60 Mg Capdr 60 MG PO DAILY #30 Ref 0 CAP Insulin Glargine Inj (Lantus Inj) 100 Unit/Ml Inj 120 UNITS SQ HS Insulin Human Regular Inj (Novolin R Inj) 100 Unit/Ml Inj 45-50 UNIT SQ TID Kulwinder Munson MD R1 Mar 23, 2017 16:10
== END 2017-03-17 16:10 | disposition home or self-care (01) ==
LOC: NEPE 13:39 → NEDA 17:30 → NEPHCDU 22:01
PROVIDERS: ADMIT Family Medicine; ATTEND Family Medicine
DX: E11.65 Type 2 diabetes mellitus with hyperglycemia (principal); N39.0 Urinary tract infection, site not specified; B96.5 Pseudomonas (aeruginosa) (mallei) (pseudomallei) as the cause of diseases classified elsewhere; E78.00 Pure hypercholesterolemia, unspecified; K21.9 Gastro-esophageal reflux disease without esophagitis; J44.9 Chronic obstructive pulmonary disease, unspecified; I25.2 Old myocardial infarction; E11.40 Type 2 diabetes mellitus with diabetic neuropathy, unspecified; M19.90 Unspecified osteoarthritis, unspecified site; K08.89 Other specified disorders of teeth and supporting structures; B37.9 Candidiasis, unspecified; Z86.73 Personal history of transient ischemic attack (TIA), and cerebral infarction without residual deficits; Z79.4 Long term (current) use of insulin; Z98.1 Arthrodesis status; Z85.828 Personal history of other malignant neoplasm of skin
CPT/HCPCS: 76937; 80048; 80053; 81001; 82948; 83036; 85025; 85027; 85610; 85730; 87040; 87077; 87086; 87186; 90732; 96361; 96365; 96372; 96374; 99285; G0378; J0696; J1644; J1815; J7030